=== PATIENT | female | born 1955 | race Caucasian/White ===

== ENCOUNTER 2017-06-23 15:23 | Emergency (ER) | payer MEDICAID ==
[~2017-06-23] VITALS: Ht 162.6 cm; Wt 98.4 kg
[2017-06-23 15:36] VITALS: BP_SYST 137
[2017-06-23] MEDS ORDERED: HYDROcodone/ACETAMIN 7.5-325 MG TAB PO ONE (21:15)
[2017-06-23] MEDS ORDERED: KETOROLAC TROMETHAMINE 30 MG VIAL IM ONE (21:15)
[2017-06-23 22:04] VITALS: BP_SYST 157
== END 2017-06-23 22:04 | disposition home or self-care (01) ==
LOC: SED 15:23
DX: S42.291A Other displaced fracture of upper end of right humerus, initial encounter for closed fracture (principal); S93.512A Sprain of interphalangeal joint of left great toe, initial encounter; E78.00 Pure hypercholesterolemia, unspecified; W01.0XXA Fall on same level from slipping, tripping and stumbling without subsequent striking against object, initial encounter; Y93.89 Activity, other specified; Y92.89 Other specified places as the place of occurrence of the external cause; Y99.8 Other external cause status
CPT/HCPCS: 73030; 73630; 96372; 99284; J1885